=== PATIENT | female | born 1965 | race American Indian/Alaskan Native ===

== ENCOUNTER 2017-04-04 07:29 | Inpatient (IN) | payer MEDICARE ==
[2017-04-04 08:28] LABS: Basophils % (Auto) 0.4 % (0.0-1.8); Eosinophils % (Auto) 0.5 % (0.0-4.3); Hematocrit 35.1 % (30.3-42.9); Hemoglobin 12.5 gm/dl (10.1-14.3); Mean Corpuscular HGB Conc 36 % (30-34); Mean Corpuscular Hemoglobin 35 pg (28-32); Mean Corpuscular Volume 97 fl (79-97); Platelet Count 375 K/mm3 (140-440); Red Blood Count 3.61 M/mm3 (3.65-5.03); Red Cell Distribution Width 15.2 % (13.2-15.2); White Blood Count 11.2 K/mm3 (4.5-11.0)
[2017-04-04 08:39] LABS: INR 1.48 (0.87-1.13)
[2017-04-04 08:40] LABS: Anion Gap 17 mmol/L; BUN/Creatinine Ratio 16; Blood Urea Nitrogen 8 mg/dL (7-17); Carbon Dioxide 28 mmol/L (22-30); Glucose 108 mg/dL (65-100); Partial Thromboplastin Time 32.8 Sec. (24.2-36.6); Potassium 3.9 mmol/L (3.6-5.0); Sodium 140 mmol/L (137-145)
[2017-04-04] MEDS ORDERED: NACL 0.9% 500 ML 500 ML IV SCH (09:00)
[2017-04-04] MEDS ORDERED: HEPARIN/NS 5000 UNIT/500ML(CATH LAB) 1,000 ML IR ONE (09:38)
[2017-04-04] MEDS ORDERED: ANCEF/STERILE WATER 2 GM/20 ML 2 GM/20 ML SYRINGE IV ONE (09:39)
[2017-04-04] MEDS: VERSED ONE ×5 (10:15→11:02)
[2017-04-04] MEDS: XYLOCAINE 2% INFILTRATI ONE ×2 (10:15→10:27)
[2017-04-04] MEDS: SUBLIMAZE ONE ×6 (10:15→11:47)
[2017-04-04] MEDS ORDERED: HEPARIN/NS 5000 UNIT/500ML(CATH LAB) 500 ML IR ONE (10:32)
[2017-04-04] MEDS: HEPARIN 10,000 UNITS/10 ML ONE ×3 (10:37→11:42)
[2017-04-04] MEDS ORDERED: CATHFLO ONE ×2 (10:46→11:33)
[2017-04-04] MEDS ORDERED: NACL 0.9% 100 ML ONE (10:46)
[2017-04-04] MEDS ORDERED: WATER FOR INJ (PF) 10 ML ONE ×2 (10:46→11:32)
[2017-04-04] MEDS ORDERED: NACL 0.9% 50 ML ONE (10:52)
[2017-04-04] MEDS ORDERED: HEPARIN/ 0.45% NACL-25,000 UNIT/500 ML 25,000 UNIT/500 ML BAG SHEATH SCH (11:00)
[2017-04-04] MEDS ORDERED: NACL 0.9% 1000 ML 1,000 ML SHEATH SCH (11:00)
[2017-04-04] MEDS ORDERED: CATHFLO 20 MG in NACL 0.9% 500 ML 500 ML EKOSDLUMEN SCH (11:00)
[2017-04-04] MEDS ORDERED: NACL 0.9% 1000 ML 1,000 ML EKOSCLUMEN SCH (11:00)
[2017-04-04] MEDS ORDERED: MORPHINE IV PRN (13:04)
[2017-04-04] MEDS ORDERED: ZOFRAN IV PRN (13:04)
[2017-04-04] MEDS ORDERED: NORCO 5/325 ONE ×2 (14:16→19:54)
[2017-04-04] MEDS: NORCO 5/325 PO PRN ×2 (14:18→20:01)
--- NOTE | 2017-04-04 14:54 | Operative Report ---
Operative Report Operative Report: Procedure: 1. Ultrasound-guided puncture of the right popliteal vein 2. Right popliteal venography 3. Right superficial femoral venography 4. Right common iliac venography and inferior vena cavography 5. Pharmacologic thrombo-lysis with TPA pulse spray 6. Mechanical thrombo-lysis with AngioJet thrombectomy device 7. Insertion of an Ekos ultrasonic thrombo-lysis catheter. Date of Procedure: 04/04/2017 History/Indication: This is a 51-year-old female who had previously undergone bilateral common iliac vein stenting 10 days ago, she presented with symptoms of occlusion on the right. Physician: Antione Tejada MD Technique/Procedural Details: The patient was placed in the prone position on the procedure table. She was prepped and draped in the usual sterile fashion. A timeout was performed. Local anesthetic was administered. Under continuous ultrasound guidance, a 21- gauge needle was advanced into the right popliteal vein. This was exchanged for an 8 Belgian sheath via a micropuncture technique. Venography was performed through the sheath. Thereafter, a combination of a Ballard wire and a 4 Belgian vertebral catheter was used to maneuver into the IVC. Pullback venography was performed from multiple locations. 10 mg of TPA was diluted in 50 mL of saline. Via the [place] Angiojet catheter , the lesion was pulse sprayed. An 18 minute the well time was allowed. Repeat imaging was performed. Thereafter mechanical thrombectomy was performed throughout the lesion spanning the SFV to the IVC with the AngioJet device. Repeat venography was performed. Based on the images, the AngioJet was exchanged for an Ekos catheter with a 40 cm therapeutic length. The catheter was sat up and hooked up to the infusion pump in the usual standard fashion. The 8 Belgian catheter was secured to the skin, and dressings were placed to secure both the catheter and sheath. The patient tolerated the procedure well and was transported to the recovery area Discussion: Sonography demonstrates occlusion of the right superficial femoral and popliteal veins. Venography demonstrates near complete occlusion spanning the proximal right common iliac vein to the mid superficial femoral vein. After mechanical and pharmacologic thrombectomy/thrombolysis, only minimal luminal gain was achieved. This may be due to to a chronic underlying component of thrombus in addition to the acute thrombus. As such, the decision was made to place a microsonic infusion catheter overnight. The patient will be reevaluated tomorrow. Specimen: None EBL: 100 cc
[2017-04-04] MEDS ORDERED: Fluarix Quad 2017-2018(36 MOS+) IM ONE (15:46)
[2017-04-04 19:35] LABS: Basophils % (Auto) 0.4 % (0.0-1.8); Eosinophils % (Auto) 0.5 % (0.0-4.3); Hematocrit 34.3 % (30.3-42.9); Hemoglobin 11.6 gm/dl (10.1-14.3); Mean Corpuscular HGB Conc 34 % (30-34); Mean Corpuscular Hemoglobin 33 pg (28-32); Mean Corpuscular Volume 99 fl (79-97); Platelet Count 324 K/mm3 (140-440); Red Blood Count 3.48 M/mm3 (3.65-5.03); Red Cell Distribution Width 14.9 % (13.2-15.2); White Blood Count 12.4 K/mm3 (4.5-11.0)
[2017-04-04] MEDS: MORPHINE IV PRN (23:24)
[2017-04-05 01:33] LABS: Basophils % (Auto) 0.7 % (0.0-1.8); Eosinophils % (Auto) 1.2 % (0.0-4.3); Hematocrit 33.7 % (30.3-42.9); Hemoglobin 11.5 gm/dl (10.1-14.3); Mean Corpuscular HGB Conc 34 % (30-34); Mean Corpuscular Hemoglobin 34 pg (28-32); Mean Corpuscular Volume 98 fl (79-97); Platelet Count 323 K/mm3 (140-440); Red Blood Count 3.43 M/mm3 (3.65-5.03); Red Cell Distribution Width 14.9 % (13.2-15.2); White Blood Count 9.9 K/mm3 (4.5-11.0)
[2017-04-05] MEDS: NORCO 5/325 PO PRN ×2 (06:47→14:55)
[2017-04-05 07:02] LABS: Basophils % (Auto) 0.8 % (0.0-1.8); Hematocrit 33.4 % (30.3-42.9); Hemoglobin 11.8 gm/dl (10.1-14.3); Mean Corpuscular HGB Conc 35 % (30-34); Mean Corpuscular Hemoglobin 34 pg (28-32); Mean Corpuscular Volume 97 fl (79-97); Platelet Count 302 K/mm3 (140-440); Red Blood Count 3.43 M/mm3 (3.65-5.03); Red Cell Distribution Width 15.1 % (13.2-15.2); White Blood Count 9.2 K/mm3 (4.5-11.0)
[2017-04-05 07:27] LABS: Anion Gap 13 mmol/L; BUN/Creatinine Ratio 10; Blood Urea Nitrogen 6 mg/dL (7-17); Calcium 8.3 mg/dL (8.4-10.2); Carbon Dioxide 30 mmol/L (22-30); Chloride 100.2 mmol/L (98-107); Glucose 93 mg/dL (65-100); Potassium 3.9 mmol/L (3.6-5.0); Sodium 139 mmol/L (137-145)
[2017-04-05 07:28] LABS: Anion Gap 12 mmol/L; BUN/Creatinine Ratio 10; Blood Urea Nitrogen 6 mg/dL (7-17); Calcium 8.3 mg/dL (8.4-10.2); Carbon Dioxide 31 mmol/L (22-30); Chloride 101.6 mmol/L (98-107); Glucose 96 mg/dL (65-100); Potassium 3.9 mmol/L (3.6-5.0); Sodium 141 mmol/L (137-145)
[2017-04-05] MEDS ORDERED: HEPARIN 10,000 UNITS/10 ML ONE (08:13)
[2017-04-05] MEDS ORDERED: HEPARIN/NS 5000 UNIT/500ML(CATH LAB) 1,000 ML IR ONE (08:13)
[2017-04-05] MEDS: SUBLIMAZE ONE ×3 (08:48→09:30)
[2017-04-05] MEDS: VERSED IV ONE ×2 (08:48→09:27)
[2017-04-05] MEDS: XYLOCAINE 2% INFILTRATI ONE ×2 (08:49→08:51)
[2017-04-05] MEDS ORDERED: ANCEF/STERILE WATER 2 GM/20 ML 2 GM/20 ML SYRINGE IV ONE (08:57)
--- NOTE | 2017-04-05 10:29 | Consultation ---
History of Present Illness - Reason for Consult Consult date: 04/05/17 Post Op Care Requesting physician: GWEN COLINDRES - History of Present Illness 51 y/o female admitted post-op from [facility] for PVD Past History Past Medical History: PVD, other Medications and Allergies Allergies Allergy/AdvReac Type Severity Reaction Status Date / Time codeine Allergy Intermediate Vomiting Verified 04/04/17 07:56 naproxen [From Naprosyn] Allergy Intermediate Vomiting Verified 04/04/17 07:56 Home Medications Medication Instructions Recorded Confirmed Last Taken Type Clopidogrel [Plavix] 75 mg PO QHS 05/11/15 04/04/17 04/03/17 History Apixaban [Eliquis] 5 mg PO DAILY 04/04/17 04/04/17 04/03/17 History Aspirin EC [Aspirin Enteric Coated 325 mg PO DAILY 04/04/17 04/04/17 04/03/17 History TAB] Active Meds: Active Medications Acetaminophen/Hydrocodone Bitart ([place] 5/325) 2 each PO Q6H PRN PRN Reason: Pain, Moderate (4-6) Last Admin: 04/05/17 06:47 Dose: 2 each Sodium Chloride (Nacl 0.9% 500 Ml) 500 mls @ 50 mls/hr IV DIRECT ALY Last Admin: 04/04/17 08:55 Dose: 50 mls/hr Alteplase, Recombinant 20 mg/ (Sodium Chloride) 500 mls @ 25 mls/hr EKOSDLUMEN DIRECT ALY Last Admin: 04/04/17 12:40 Dose: 25 mls/hr Heparin Sodium/Sodium Chloride (Heparin/ 0.45% Nacl-25,000 Unit/500 Ml) 25,000 unit in 500 mls @ 10 mls/hr SHEATH DIRECT ALY; 500 UNITS/HR PRN Reason: Protocol Last Admin: 04/04/17 12:40 Dose: 500 units/hr, 10 mls/hr Sodium Chloride (Nacl 0.9% 1000 Ml) 1,000 mls @ 30 mls/hr SHEATH DIRECT ALY Sodium Chloride (Nacl 0.9% 1000 Ml) 1,000 mls @ 35 mls/hr EKOSCLUMEN DIRECT ALY Last Admin: 04/04/17 12:40 Dose: 35 mls/hr Influenza Virus Vaccine Quadrival (Fluarix Quad [id number](36 Mos+)) 0.5 ml IM .ONCE ONE Stop: 04/05/17 12:01 Morphine Sulfate (Morphine) 2 mg IV Q4H PRN PRN Reason: Pain, Moderate (4-6) Last Admin: 04/04/17 23:24 Dose: 2 mg Morphine Sulfate (Morphine) 4 mg IV Q4H PRN PRN Reason: Pain , Severe (7-10) Ondansetron HCl (Zofran) 4 mg IV Q8H PRN PRN Reason: Nausea And Vomiting Last Admin: 04/04/17 23:24 Dose: 4 mg Review of Systems All systems: negative Exam - Constitutional Vitals: Temp Pulse Resp BP Pulse Ox 98.2 F 65 12 125/90 97 04/05/17 08:00 04/05/17 07:40 04/05/17 07:40 04/05/17 07:40 04/05/17 07:40 Results - Labs CBC & Chem 7: 04/05/17 06:45 04/06/17 05:44 Labs: Abnormal lab results 04/04/17 04/04/17 04/05/17 Range/Units 19:20 19:20 01:15 WBC 12.4 H (4.5-11.0) K/mm3 RBC 3.48 L 3.43 L (3.65-5.03) M/mm3 MCV 99 H 98 H (79-97) fl MCH 33 H 34 H (28-32) pg MCHC (30-34) % [place] % (Auto) 9.7 H 10.1 H (0.0-7.3) % [place] # 1.2 H 1.0 H (0.0-0.8) K/mm3 Seg Neutrophils % 70.8 H (40.0-70.0) % Seg Neutrophils # 8.8 H (1.8-7.7) K/mm3 Fibrinogen 516 H (211-480) mg/dl Heparin Anti-Xa Level 0.73 H (0.3-0.7) U.I./ml Carbon Dioxide (22-30) mmol/L BUN (7-17) mg/dL Creatinine (0.7-1.2) mg/dL Calcium (8.4-10.2) mg/dL 04/05/17 04/05/17 04/05/17 Range/Units 06:45 06:45 06:45 WBC (4.5-11.0) K/mm3 RBC 3.43 L (3.65-5.03) M/mm3 MCV (79-97) fl MCH 34 H (28-32) pg MCHC 35 H (30-34) % [place] % (Auto) 12.7 H (0.0-7.3) % [place] # 1.2 H (0.0-0.8) K/mm3 Seg Neutrophils % (40.0-70.0) % Seg Neutrophils # (1.8-7.7) K/mm3 Fibrinogen (211-480) mg/dl Heparin Anti-Xa Level 0.25 L (0.3-0.7) U.I./ml Carbon Dioxide (22-30) mmol/L BUN 6 L (7-17) mg/dL Creatinine 0.6 L (0.7-1.2) mg/dL Calcium 8.3 L (8.4-10.2) mg/dL 04/05/17 Range/Units 06:45 WBC (4.5-11.0) K/mm3 RBC (3.65-5.03) M/mm3 MCV (79-97) fl MCH (28-32) pg MCHC (30-34) % [place] % (Auto) (0.0-7.3) % [place] # (0.0-0.8) K/mm3 Seg Neutrophils % (40.0-70.0) % Seg Neutrophils # (1.8-7.7) K/mm3 Fibrinogen (211-480) mg/dl Heparin Anti-Xa Level (0.3-0.7) U.I./ml Carbon Dioxide 31 H (22-30) mmol/L BUN 6 L (7-17) mg/dL Creatinine 0.6 L (0.7-1.2) mg/dL Calcium 8.3 L (8.4-10.2) mg/dL Assessment and Plan 51 y/o female with PVD, needing EKOS therapy for blood flow 1. EKOS catheters to be removed today 2. Bed rest post removal 3. Hopeful transfer to floor post bed rest time
--- NOTE | 2017-04-05 10:43 | Operative Report ---
Operative Report Operative Report: Procedure: 1. Removal of Ekos TPA infusion catheter from the right lower extremity. 2. Venography of the right common iliac, external iliac, common femoral, and superficial femoral veins 3. Mechanical thrombectomy of the right common iliac, external iliac, common femoral, and superficial veins with a Trerotola device. 4. Suction thrombectomy of the aforementioned veins 5. Balloon angioplasty of the right superficial femoral vein 6. Balloon angioplasty of the right external iliac vein 7. Balloon angioplasty of the right common iliac vein 8. Balloon angioplasty of the right common femoral vein 2 9. Repeat mechanical thrombectomy of the right common femoral vein 10.. Balloon angioplasty of the distal inferior vena cava Date of Procedure: 04/05/2017 History/Indication: 51-year-old female with bilateral common iliac vein stents. She developed thrombosis of the right sided stent several days ago. Yesterday, she had a TPA infusion catheter placed. She returns today for follow-up evaluation and possible treatment. Physician: Antione Tejada MD Technique/Procedural Details: The patient was placed in the prone position and prepped and draped in the usual sterile fashion. A timeout was performed. Images were acquired to document positioning of the TPA infusion catheter. Thereafter, a Ballard wire and 4 [place] vertebral catheter were used to access the IVC through the prexisting sheath. Sequential venography from the central common iliac vein down to the mid superficial femoral vein was performed. Then, mechanical thrombectomy with a Trerotola device was performed from the superficial femoral vein to the mid common iliac vein. An 8 [place] MPA guide catheter was advanced to the IVC, and pullback suction thrombectomy was performed from this level to the superficial femoral vein. After repeat venography, the common and superficial femoral veins were treated with a 10 mm x 4 cm balloon. The external iliac and common iliac veins were treated with a 12 mm x 6 cm balloon. After repeat venography, repeat mechanical thrombectomy and suction thrombectomy of the right common femoral vein was performed. A 10 mm conquest balloon was used to repeat venooplasty of the right common femoral vein. The balloon was removed, and repeat imaging was performed. The 12 mm balloon was advanced to the central aspect of the common iliac vein. The Ballard wire was replaced with a superstiff Amplatz wire. The 12 mm balloon was then partially advanced to the IVC. Venoplasty of the distal IVC and central right common iliac vein was then performed. Venography of the IVC bifurcation was then performed in multiple projections. Repeat venography of the superficial femoral vein was performed. All catheters and wires were removed from the patient. Hemostasis was achieved with manual pressure. The patient was then transported to the recovery area without immediate complication. Discussion: In comparison to imaging from yesterday, there was significantly improved patency spanning the superficial femoral vein to the common iliac vein after placement of the Ekos catheter. Residual areas of thrombus were treated with mechanical and suction thrombectomy. Any further stenoses were treated with balloon angioplasty. After intervention, there was complete patency of the superficial femoral and external iliac veins. There were residual, mild chronic changes in the right common femoral vein. Irregular appearing flow into the IVC from the right common iliac vein may be due to a combination of mild chronic changes and inflow of an opacified blood. Specimen: None EBL: <5 cc
[2017-04-05] MEDS ORDERED: Fluarix Quad 2017-2018(36 MOS+) IM ONE (12:00)
--- NOTE | 2017-04-05 12:55 | Progress Note ---
Assessment and Plan She feels much better after part two of her thrombectomy/thrombolysis procedure. I will have hematology see her in case there is an issue with hypercoagulability. In the meantime, she will start on Eliquis 10 BID tonight. Her baird can be d/c'ed after her bedrest is over. I will transfer her to the floors. Subjective Date of service: 04/05/17 Interval history: I checked on the patient several hours after her procedure. She reports that her right leg feels much better. She will be on bedrest until 1:00 PM Objective - Constitutional Vitals: Vital Signs - 12hr 04/05/17 04/05/17 04/05/17 01:00 01:10 01:20 Temperature Pulse Rate 56 L 57 L 62 Respiratory 12 14 Rate Blood Pressure 126/62 126/62 126/62 O2 Sat by Pulse 98 99 99 Oximetry 04/05/17 04/05/17 04/05/17 01:30 01:40 01:50 Temperature Pulse Rate 59 L 59 L 57 L Respiratory 20 17 20 Rate Blood Pressure 126/62 126/62 126/62 O2 Sat by Pulse 97 96 96 Oximetry 04/05/17 04/05/17 04/05/17 02:00 02:10 02:20 Temperature Pulse Rate 59 L 58 L 57 L Respiratory 18 19 19 Rate Blood Pressure 116/65 116/65 116/65 O2 Sat by Pulse 94 97 96 Oximetry 04/05/17 04/05/17 04/05/17 02:30 02:40 02:50 Temperature Pulse Rate 60 55 L 60 Respiratory 20 17 13 Rate Blood Pressure 116/65 116/65 116/65 O2 Sat by Pulse 99 99 100 Oximetry 04/05/17 04/05/17 04/05/17 03:00 03:10 03:11 Temperature 98.5 F Pulse Rate 60 62 Respiratory 16 20 Rate Blood Pressure 126/70 126/70 O2 Sat by Pulse 96 96 Oximetry 04/05/17 04/05/17 04/05/17 03:20 03:30 03:40 Temperature Pulse Rate 55 L 61 61 Respiratory 18 23 21 Rate Blood Pressure 126/70 126/70 126/70 O2 Sat by Pulse 98 95 95 Oximetry 04/05/17 04/05/17 04/05/17 03:50 04:00 04:10 Temperature Pulse Rate 62 57 L 73 Respiratory 22 15 14 Rate Blood Pressure 126/70 103/65 103/65 O2 Sat by Pulse 95 95 88 Oximetry 04/05/17 04/05/17 04/05/17 04:20 04:30 04:40 Temperature Pulse Rate 59 L 57 L 56 L Respiratory 18 16 18 Rate Blood Pressure 103/65 103/65 103/65 O2 Sat by Pulse 95 98 98 Oximetry 04/05/17 04/05/17 04/05/17 04:50 05:00 05:10 Temperature Pulse Rate 55 L 53 L 58 L Respiratory 19 17 19 Rate Blood Pressure 103/65 122/66 122/66 O2 Sat by Pulse 97 96 97 Oximetry 04/05/17 04/05/17 04/05/17 05:20 05:30 05:40 Temperature Pulse Rate 59 L 61 63 Respiratory 19 21 11 L Rate Blood Pressure 103/65 103/65 103/65 O2 Sat by Pulse 95 96 100 Oximetry 04/05/17 04/05/17 04/05/17 05:50 06:00 06:10 Temperature Pulse Rate 59 L 60 60 Respiratory 12 12 10 L Rate Blood Pressure 103/65 125/69 125/69 O2 Sat by Pulse 98 97 99 Oximetry 04/05/17 04/05/17 04/05/17 06:20 06:30 06:40 Temperature Pulse Rate 60 55 L 58 L Respiratory 12 14 11 L Rate Blood Pressure 125/69 125/69 125/69 O2 Sat by Pulse 96 98 100 Oximetry 04/05/17 04/05/17 04/05/17 06:50 07:00 07:10 Temperature Pulse Rate 65 58 L 63 Respiratory 13 12 15 Rate Blood Pressure 125/69 125/90 125/90 O2 Sat by Pulse 100 92 100 Oximetry 04/05/17 04/05/17 04/05/17 07:20 07:30 07:40 Temperature Pulse Rate 60 53 L 65 Respiratory 8 L 12 12 Rate Blood Pressure 125/90 125/90 125/90 O2 Sat by Pulse 100 100 97 Oximetry 04/05/17 04/05/17 04/05/17 08:00 10:29 10:30 Temperature 98.2 F Pulse Rate Respiratory Rate Blood Pressure O2 Sat by Pulse 99 99 Oximetry 04/05/17 04/05/17 04/05/17 10:40 10:50 11:00 Temperature Pulse Rate 49 L 58 L 52 L Respiratory 11 L 11 L 12 Rate Blood Pressure 127/74 125/90 142/50 O2 Sat by Pulse 97 98 98 Oximetry 04/05/17 04/05/17 04/05/17 11:10 11:20 11:30 Temperature Pulse Rate 57 L 59 L 59 L Respiratory 11 L 9 L 12 Rate Blood Pressure 142/50 142/50 136/89 O2 Sat by Pulse 98 100 99 Oximetry 04/05/17 04/05/17 04/05/17 11:40 11:50 12:00 Temperature Pulse Rate 57 L 54 L 63 Respiratory 13 12 9 L Rate Blood Pressure 136/89 136/89 139/86 O2 Sat by Pulse 69 L 100 99 Oximetry 04/05/17 04/05/17 12:10 12:20 Temperature Pulse Rate 60 65 Respiratory 13 13 Rate Blood Pressure 139/86 139/86 O2 Sat by Pulse 100 95 Oximetry General appearance: Present: no acute distress - EENT Eyes: EOM intact ENT: hearing intact - Neck Neck: supple, normal ROM Extremities: no ischemia Extremity abnormal: edema - Labs CBC & Chem 7: 04/05/17 06:45 04/05/17 06:45 Labs: Abnormal lab results 04/04/17 04/04/17 04/05/17 Range/Units 19:20 19:20 01:15 WBC 12.4 H (4.5-11.0) K/mm3 RBC 3.48 L 3.43 L (3.65-5.03) M/mm3 MCV 99 H 98 H (79-97) fl MCH 33 H 34 H (28-32) pg MCHC (30-34) % [place] % (Auto) 9.7 H 10.1 H (0.0-7.3) % [place] # 1.2 H 1.0 H (0.0-0.8) K/mm3 Seg Neutrophils % 70.8 H (40.0-70.0) % Seg Neutrophils # 8.8 H (1.8-7.7) K/mm3 Fibrinogen 516 H (211-480) mg/dl Heparin Anti-Xa Level 0.73 H (0.3-0.7) U.I./ml Carbon Dioxide (22-30) mmol/L BUN (7-17) mg/dL Creatinine (0.7-1.2) mg/dL Calcium (8.4-10.2) mg/dL 04/05/17 04/05/17 04/05/17 Range/Units 06:45 06:45 06:45 WBC (4.5-11.0) K/mm3 RBC 3.43 L (3.65-5.03) M/mm3 MCV (79-97) fl MCH 34 H (28-32) pg MCHC 35 H (30-34) % [place] % (Auto) 12.7 H (0.0-7.3) % [place] # 1.2 H (0.0-0.8) K/mm3 Seg Neutrophils % (40.0-70.0) % Seg Neutrophils # (1.8-7.7) K/mm3 Fibrinogen (211-480) mg/dl Heparin Anti-Xa Level 0.25 L (0.3-0.7) U.I./ml Carbon Dioxide (22-30) mmol/L BUN 6 L (7-17) mg/dL Creatinine 0.6 L (0.7-1.2) mg/dL Calcium 8.3 L (8.4-10.2) mg/dL 04/05/17 Range/Units 06:45 WBC (4.5-11.0) K/mm3 RBC (3.65-5.03) M/mm3 MCV (79-97) fl MCH (28-32) pg MCHC (30-34) % [place] % (Auto) (0.0-7.3) % [place] # (0.0-0.8) K/mm3 Seg Neutrophils % (40.0-70.0) % Seg Neutrophils # (1.8-7.7) K/mm3 Fibrinogen (211-480) mg/dl Heparin Anti-Xa Level (0.3-0.7) U.I./ml Carbon Dioxide 31 H (22-30) mmol/L BUN 6 L (7-17) mg/dL Creatinine 0.6 L (0.7-1.2) mg/dL Calcium 8.3 L (8.4-10.2) mg/dL
[2017-04-05] MEDS: ELIQUIS PO SCH (21:49)
[2017-04-05] MEDS: MORPHINE IV PRN (21:57)
[2017-04-06] MEDS: MORPHINE IV PRN (06:04)
[2017-04-06 06:51] LABS: Anion Gap 17 mmol/L; BUN/Creatinine Ratio 7; Blood Urea Nitrogen 4 mg/dL (7-17); Calcium 8.4 mg/dL (8.4-10.2); Carbon Dioxide 28 mmol/L (22-30); Chloride 98.9 mmol/L (98-107); Glucose 101 mg/dL (65-100); Potassium 3.5 mmol/L (3.6-5.0); Sodium 140 mmol/L (137-145)
[2017-04-06] MEDS: NORCO 5/325 PO PRN ×2 (08:29→14:27)
[2017-04-06] MEDS: ELIQUIS PO SCH ×2 (10:06→23:16)
--- NOTE | 2017-04-06 11:27 | Progress Note ---
Assessment and Plan 51 y/o female with PVD, needing EKOS therapy for blood flow 1. Will sign off, call if questions or help is needed. Subjective Date of service: 04/06/17 Interval history: Successful transfer out of ICU. Stable, no issues. Objective - Constitutional Vitals: Vital Signs - 12hr 04/06/17 04/06/17 04/06/17 02:00 06:04 08:29 Temperature Pulse Rate Respiratory 20 18 Rate Respiratory 20 Rate [Right Thigh] Blood Pressure O2 Sat by Pulse Oximetry 04/06/17 04/06/17 04/06/17 08:40 09:29 10:22 Temperature 98.1 F Pulse Rate 68 Respiratory 20 16 16 Rate Respiratory Rate [Right Thigh] Blood Pressure 143/85 O2 Sat by Pulse 98 Oximetry - Labs CBC & Chem 7: 04/05/17 06:45 04/06/17 05:44 Labs: Abnormal lab results 04/06/17 Range/Units 05:44 Potassium 3.5 L (3.6-5.0) mmol/L BUN 4 L (7-17) mg/dL Creatinine 0.6 L (0.7-1.2) mg/dL Glucose 101 H (65-100) mg/dL
--- NOTE | 2017-04-06 11:35 | Progress Note ---
Assessment and Plan From a vascular perspective, she has done well. She restarted Eliquis yesterday evening. She will be seen by hematology today. Allowing for any recommendations by hematology, she will be tentatively discharged this afternoon. Subjective Date of service: 04/06/17 Interval history: The patient is status post right lower extremity venous thrombectomy/ spondylolysis. She was transferred to the floors yesterday. There have been no acute events overnight. She states the pain in her right leg is significantly decreased, although she does complain of some mild cramping. She has been able to ambulate without difficulty. Objective - Constitutional Vitals: Vital Signs - 12hr 04/06/17 04/06/17 04/06/17 02:00 06:04 08:29 Temperature Pulse Rate Respiratory 20 18 Rate Respiratory 20 Rate [Right Thigh] Blood Pressure O2 Sat by Pulse Oximetry 04/06/17 04/06/17 04/06/17 08:40 09:29 10:22 Temperature 98.1 F Pulse Rate 68 Respiratory 20 16 16 Rate Respiratory Rate [Right Thigh] Blood Pressure 143/85 O2 Sat by Pulse 98 Oximetry General appearance: Present: no acute distress - EENT Eyes: EOM intact ENT: hearing intact - Neck Neck: supple Extremities: No edema, normal temperature, normal color - Labs CBC & Chem 7: 04/05/17 06:45 04/06/17 05:44 Labs: Abnormal lab results 04/06/17 Range/Units 05:44 Potassium 3.5 L (3.6-5.0) mmol/L BUN 4 L (7-17) mg/dL Creatinine 0.6 L (0.7-1.2) mg/dL Glucose 101 H (65-100) mg/dL
--- NOTE | 2017-04-06 12:03 | Hem/Onc Consultation ---
History of Present Illness - Reason for Consult Consult date: 04/06/17 - History of Present Illness dictated Past History Past Medical History: PVD, other Medications and Allergies Allergies Allergy/AdvReac Type Severity Reaction Status Date / Time codeine Allergy Intermediate Vomiting Verified 04/04/17 07:56 naproxen [From Naprosyn] Allergy Intermediate Vomiting Verified 04/04/17 07:56 Home Medications Medication Instructions Recorded Confirmed Last Taken Type Clopidogrel [Plavix] 75 mg PO QHS 05/11/15 04/04/17 04/03/17 History Apixaban [Eliquis] 5 mg PO DAILY 04/04/17 04/04/17 04/03/17 History Aspirin EC [Aspirin Enteric Coated 325 mg PO DAILY 04/04/17 04/04/17 04/03/17 History TAB] Active Meds: Active Medications Acetaminophen/Hydrocodone Bitart ([place] 5/325) 2 each PO Q6H PRN PRN Reason: Pain, Moderate (4-6) Last Admin: 04/06/17 08:29 Dose: 2 each Apixaban (Eliquis) 10 mg PO Q12HR ALY PRN Reason: Protocol Last Admin: 04/06/17 10:06 Dose: 10 mg Morphine Sulfate (Morphine) 2 mg IV Q4H PRN PRN Reason: Pain, Moderate (4-6) Last Admin: 04/06/17 06:04 Dose: 2 mg Morphine Sulfate (Morphine) 4 mg IV Q4H PRN PRN Reason: Pain , Severe (7-10) Ondansetron HCl (Zofran) 4 mg IV Q8H PRN PRN Reason: Nausea And Vomiting Last Admin: 04/04/17 23:24 Dose: 4 mg Exam - Constitutional Vitals: Last Vital Signs Temp 98.1 F 04/06/17 08:40 Pulse 68 04/06/17 08:40 Resp 16 04/06/17 10:22 BP 143/85 04/06/17 08:40 Pulse Ox 98 04/06/17 08:40 Results - Labs lab Results: Laboratory Results - last 24 hr 04/06/17 05:44 Sodium 140 Potassium 3.5 L Chloride 98.9 Carbon Dioxide 28 Anion Gap 17 BUN 4 L Creatinine 0.6 L Estimated GFR > 60 BUN/Creatinine Ratio 7 Glucose 101 H Calcium 8.4 Assessment and Plan hypercoag w/u hit panel agree with eliquis will follow may need abd ct- pt had abd surgery
--- NOTE | 2017-04-06 14:11 | Discharge Summary ---
Providers - Providers Date of Admission: 04/04/17 13:07 Date of discharge: 04/06/17 Attending physician: GWEN COLINDRES MD 04/05/17 11:42 Consult to Physician [CONS] Routine Consulting Provider: ABDIAZIZ WHITAKER Reason For Exam: hypercoagulability Place consult to:: Annelise Notified:: yes Was contact made?: Yes If yes, spoke with:: Annelise Time called:: 11:43 Comment:: Dr. Colindres spoke with Dr. Whitaker at 11:43 as noted above Primary care physician: TESSA NIXON Hospitalization Reason for admission: DVT Condition: Good Procedures: Procedure: 1. Ultrasound-guided puncture of the right popliteal vein 2. Right popliteal venography 3. Right superficial femoral venography 4. Right common iliac venography and inferior vena cavography 5. Pharmacologic thrombo-lysis with TPA pulse spray 6. Mechanical thrombo-lysis with AngioJet thrombectomy device 7. Insertion of an Ekos ultrasonic thrombo-lysis catheter. Date of Procedure: 04/04/2017 Procedure: 1. Removal of Ekos TPA infusion catheter from the right lower extremity. 2. Venography of the right common iliac, external iliac, common femoral, and superficial femoral veins 3. Mechanical thrombectomy of the right common iliac, external iliac, common femoral, and superficial veins with a Trerotola device. 4. Suction thrombectomy of the aforementioned veins 5. Balloon angioplasty of the right superficial femoral vein 6. Balloon angioplasty of the right external iliac vein 7. Balloon angioplasty of the right common iliac vein 8. Balloon angioplasty of the right common femoral vein 2 9. Repeat mechanical thrombectomy of the right common femoral vein 10.. Balloon angioplasty of the distal inferior vena cava Date of Procedure: 04/05/2017 Hospital course: The was sent over from the office due to concern over thrombosis of a right lower extremity venous stent. On the day of admission she underwent pharmacologic and mechanical thrombectomy with Ekos catheter placement. The next day, the Ekos was removed, and further mechanical thrombectomy was performed. She felt much better afterwards and was seen by hematology thereafter. Disposition: TO HOME OR SELFCARE Core Measure Documentation - Palliative Care Palliative Care/ Comfort Measures: Not Applicable - Core Measures Any of the following diagnoses?: DVT/PE - VTE Discharge Requirements Deep Vein Thrombosis/Pulmonary Embolism Present on Admission: Yes Has pt received <5 days of overlap therapy or INR<2.0: No (Patient bridged from heparin to eliquis) Anticoagulant overlap therapy prescribed at discharge: No Contraindication No Overlap Therapy order at DC: Not Indicated (on eliquis) Exam - Constitutional Vitals: Temp Pulse Resp BP Pulse Ox 98.1 F 68 16 143/85 98 04/06/17 08:40 04/06/17 08:40 04/06/17 10:22 04/06/17 08:40 04/06/17 08:40 General appearance: Present: no acute distress - EENT Eyes: Present: PERRL ENT: hearing intact - Neck Neck: Present: supple - Respiratory Respiratory effort: normal - Extremities Extremities: no ischemia Plan Activity: advance as tolerated Weight Bearing Status: Weight Bear as Tolerated Diet: low cholesterol Wound: open to air, keep clean and dry Follow up with: TESSA NIXON MD [Primary Care Provider] - 7 Days ABDIAZIZ WHITAKER MD [Staff Physician] - 7 Days GWEN COLINDRES MD [Staff Physician] - 14 Days Prescriptions: Apixaban [Eliquis] 5 mg PO Q12HR #60 tablet
[2017-04-07] MEDS: NORCO 5/325 PO PRN ×2 (00:24→09:10)
[2017-04-07 08:26] VITALS: BP 143/95
[2017-04-07] MEDS: ELIQUIS PO SCH (09:10)
[2017-04-07 11:16] LABS: Anion Gap 20 mmol/L; BUN/Creatinine Ratio 7; Blood Urea Nitrogen 4 mg/dL (7-17); Calcium 8.6 mg/dL (8.4-10.2); Carbon Dioxide 27 mmol/L (22-30); Chloride 100.5 mmol/L (98-107); Glucose 96 mg/dL (65-100); Potassium 3.7 mmol/L (3.6-5.0); Sodium 144 mmol/L (137-145)
--- NOTE | 2017-04-07 12:12 | Consultation ---
REFERRING PHYSICIAN: ____. REASON FOR CONSULTATION: Hypercoagulable state. HISTORY OF PRESENT ILLNESS: The patient is a 51-year-old female, who had undergone bilateral common iliac vein stenting few days ago, presented with occlusion on the right side. She was found to have extensive thrombosis of the right iliac, right femoral ____ foot all the way to the thigh and from the ____ of the right popliteal vein and ____ thrombolysis with Angiojet thrombectomy ____ thrombolysis catheter on the . Because of the fact that she had an extensive thrombosis, after the procedure, Hematology consult was called. The patient has had Kwon's disease in 2009, requiring right-sided toes amputation. She has had multiple vascular procedures done over the past. She denies any family history of thrombosis. She used to smoke cigars, but quit several years ago. Does not take any hormone supplements. The patient ____ in September of this year at [facility]. She did have ____. PAST MEDICAL HISTORY: As mentioned in the history of present illness. SOCIAL HISTORY: She does not smoke or drink. PHYSICAL EXAMINATION: GENERAL: The patient is awake and oriented. HEENT: Unremarkable. CHEST: Clear. CARDIOVASCULAR: Regular rate and rhythm. ABDOMEN: Soft and nontender. EXTREMITIES: Right leg shows ____ normal temperature. In the right leg, there is absence of toes. Left leg is within normal limits. LABORATORY DATA: ____. ASSESSMENT: Extensive venous thrombosis on the right leg in this patient with recent ____ stents placement. PLAN: At this time, we will do hypercoagulable workup here. We will also add heparin-induced thrombocytopenia assay. We will follow up on the results. May need CT of the abdomen to rule out any intraabdominal pathology, especially since she had recent abdominal surgery. The patient is on Eliquis, and I agree with that. We will monitor. JOB# [id number] PAOLA/KEVAN
[2017-04-08 05:09] LABS: PTT-LA 41 sec (<=40)
[2017-04-09 11:01] LABS: Protein S, Free 125 % normal (50-147); Protein S, Total 152 % (70-140)
[2017-04-10 09:29] LABS: Heparin-Induced Platelet Antib Negative (Negative); Unfractionated Heparin Negative (Negative)
== END 2017-04-07 15:11 | disposition home or self-care (01) | DRG 908 ==
LOC: CATHLABREC 07:29 → CC1 13:07 → 3A 04-05 15:30
PROVIDERS: ADMIT Radiology Diagnostic Radiology; ATTEND Radiology Diagnostic Radiology
PROC: 3E04317 Introduction of Other Thrombolytic into Central Vein, Percutaneous Approach (ICD-10-PCS; 2017-04-04)
PROC: B51B1ZZ Fluoroscopy of Right Lower Extremity Veins using Low Osmolar Contrast (ICD-10-PCS; 2017-04-04)
PROC: B51F1ZZ Fluoroscopy of Right Pelvic (Iliac) Veins using Low Osmolar Contrast (ICD-10-PCS; 2017-04-04)
PROC: 06CC3ZZ Extirpation of Matter from Right Common Iliac Vein, Percutaneous Approach (ICD-10-PCS; principal; 2017-04-05)
PROC: 06CF3ZZ Extirpation of Matter from Right External Iliac Vein, Percutaneous Approach (ICD-10-PCS; 2017-04-05)
PROC: 06CM3ZZ Extirpation of Matter from Right Femoral Vein, Percutaneous Approach (ICD-10-PCS; 2017-04-05)
PROC: 067M3ZZ Dilation of Right Femoral Vein, Percutaneous Approach (ICD-10-PCS; 2017-04-05)
PROC: 067F3ZZ Dilation of Right External Iliac Vein, Percutaneous Approach (ICD-10-PCS; 2017-04-05)
PROC: 067C3ZZ Dilation of Right Common Iliac Vein, Percutaneous Approach (ICD-10-PCS; 2017-04-05)
DX: T85.868A Thrombosis due to other internal prosthetic devices, implants and grafts, initial encounter (principal); D68.59 Other primary thrombophilia; Y83.8 Other surgical procedures as the cause of abnormal reaction of the patient, or of later complication, without mention of misadventure at the time of the procedure; I73.9 Peripheral vascular disease, unspecified; Y92.89 Other specified places as the place of occurrence of the external cause; Z88.5 Allergy status to narcotic agent; Z88.8 Allergy status to other drugs, medicaments and biological substances; Z79.82 Long term (current) use of aspirin
CPT/HCPCS: 36415; 37187; 37212; 37214; 37248; 37249; 51702; 75820; 80048; 83516; 85025; 85210; 85220; 85301; 85305; 85384; 85520; 85610; 85613; 85730; 86022; 90686; 96365; 96366; 96368; C1725; C1757; C1769; C1887; C1894; J0690; J1644; J2250; J2270; J2405; J2997; J3010; J7030; J7040; Q9967

== ENCOUNTER 2017-12-25 08:25 | Inpatient (IN) | payer MEDICARE ==
[2017-12-25] MEDS ORDERED: ASPIRIN PO ONE (08:44)
--- NOTE | 2017-12-25 09:06 | XRay Report ---
Chest 2 views: Compared to 04/15/16. History: Chest pain. Shortness of breath. Findings: Borderline cardiomegaly. Trachea is midline. Scarring left lower lobe. No consolidation or pleural effusion. Impression: No acute cardiopulmonary findings.
[2017-12-25 10:10] LABS: Basophils # (Auto) 0.1 K/mm3 (0.0-0.1); Eosinophils # (Auto) 0.2 K/mm3 (0.0-0.4); Hematocrit 43.5 % (30.3-42.9); Hemoglobin 14.6 gm/dl (10.1-14.3); Lymphocytes % (Auto) 31.5 % (13.4-35.0); Mean Corpuscular HGB Conc 33 % (30-34); Mean Corpuscular Hemoglobin 33 pg (28-32); Mean Corpuscular Volume 100 fl (79-97); Monocytes # (Auto) 0.8 K/mm3 (0.0-0.8); Monocytes % (Auto) 8.3 % (0.0-7.3); Platelet Count 288 K/mm3 (140-440); Red Blood Count 4.36 M/mm3 (3.65-5.03); Red Cell Distribution Width 16.8 % (13.2-15.2)
[2017-12-25 10:20] LABS: BUN/Creatinine Ratio 20; Blood Urea Nitrogen 12 mg/dL (7-17); Calcium 9.1 mg/dL (8.4-10.2); Hemolysis Index 27
[2017-12-25] MEDS ORDERED: NITROSTAT SL PRN (11:31)
[2017-12-25] MEDS ORDERED: SUBLIMAZE IV ONE (11:32)
--- NOTE | 2017-12-25 11:34 | Emergency Department Report ---
ED Chest Pain HPI - General Chief Complaint: Chest Pain Stated Complaint: CHEST PAIN/CATE Time Seen by Provider: 12/25/17 11:15 Source: patient, RN notes reviewed, old records reviewed Mode of arrival: Ambulatory Limitations: No Limitations - History of Present Illness Initial Comments: This is a 52-year-old female who is known to this provider previously. Has a past medical history of DVT, IVC stents, iliac vein stent, on chronic anticoagulation; pradaxa Patient presents to the ER with a complaint of central and left-sided chest pain. The pains are sharp. It increases with palpation. It decreases with rest. It does not radiate anywhere. She denies vomiting, diaphoresis, shortness of breath. Denies recent cocaine use. No recent aspirin use. No recent cardiac risk stratification within the past months. No lower abdominal pain. Reports compliance with outpatient anticoagulation. MD Complaint: chest pain -: Gradual Onset: during rest Pain Location: substernal, left chest, right chest Pain Radiation: none Severity: mild Severity scale (0 -10): 10 Quality: tightness, aching Consistency: constant Improves With: rest Worsens With: palpation Aspirin use within the Past 7 Days: (0) No - Related Data On Oral Contraceptives: No Home Medications Medication Instructions Recorded Confirmed Last Taken Dabigatran [Pradaxa] 150 mg PO BID 12/25/17 12/25/17 12/25/17 Ergocalciferol [Vitamin D2] 1 cap PO QWEEK 12/25/17 12/25/17 Unknown Folic Acid [Folvite] 1 mg PO QDAY 12/25/17 12/25/17 12/25/17 Allergies Allergy/AdvReac Type Severity Reaction Status Date / Time codeine Allergy Intermediate Vomiting Verified 04/04/17 07:56 naproxen [From Naprosyn] Allergy Intermediate Vomiting Verified 04/04/17 07:56 Heart Score - HEART Score History: Slightly suspicious EKG: Non-specific Age: 45-65 Risk factors: 1-2 risk factors Troponin: < normal limit HEART Score: 3 - Critical Actions Critical Actions: 0-3 pts:0.9-1.7%risk of adverse cardiac event.Candidate for discharge ED Review of Systems ROS: Stated complaint: CHEST PAIN/CATE Other details as noted in HPI Comment: All other systems reviewed and negative Respiratory: denies: cough Cardiovascular: chest pain ED Past Medical Hx - Past Medical History Hx Hypertension: Yes (1979, stop taking meds 08/2016) Hx Heart Attack/AMI: No Hx Congestive Heart Failure: No Hx Diabetes: No Hx Deep Vein Thrombosis: Yes Hx Sickle Cell Disease: No Hx Arthritis: Yes Hx Headaches / Migraines: Yes (migraines) Hx Seizures: No Hx Asthma: No Hx COPD: Yes (early, asymptomatic) Hx HIV: No - Surgical History Hx Pacemaker: No Hx Internal Defibrillator: No Hx Cholecystectomy: Yes Hx Breast Surgery: Yes Additional Surgical History: [place] filter - Social History Smoking Status: Former Smoker Substance Use Type: Marijuana - Medications Home Medications: Home Medications Medication Instructions Recorded Confirmed Last Taken Type Dabigatran [Pradaxa] 150 mg PO BID 12/25/17 12/25/17 12/25/17 History Ergocalciferol [Vitamin D2] 1 cap PO QWEEK 12/25/17 12/25/17 Unknown History Folic Acid [Folvite] 1 mg PO QDAY 12/25/17 12/25/17 12/25/17 History ED Physical Exam - General Limitations: No Limitations General appearance: alert, in no apparent distress - Head Head exam: Present: atraumatic, normocephalic - Eye Eye exam: Present: normal appearance - ENT ENT exam: Present: normal exam, normal orophraynx, mucous membranes moist, normal external ear exam - Neck Neck exam: Present: normal inspection, full ROM - Respiratory Respiratory exam: Present: normal lung sounds bilaterally, chest wall tenderness , other (chaperoned by nurse call JODY BROWNING). Absent: respiratory distress - Cardiovascular Cardiovascular Exam: Present: regular rate, normal rhythm, normal heart sounds. Absent: bradycardia, tachycardia, irregular rhythm, systolic murmur, diastolic murmur, rubs, gallop - GI/Abdominal GI/Abdominal exam: Present: soft, normal bowel sounds. Absent: distended, tenderness, guarding, rebound, rigid, pulsatile mass - Extremities Exam Extremities exam: Present: normal inspection, full ROM, normal capillary refill , other (2+ pulses noted in the bilateral upper, lower extremities. Compartments soft. No long bony tenderness. The pelvis is stable.). Absent: pedal edema, joint swelling, calf tenderness - Back Exam Back exam: Present: normal inspection, full ROM. Absent: tenderness, CVA tenderness (R), paraspinal tenderness, vertebral tenderness - Neurological Exam Neurological exam: Present: alert, oriented X3, CN II-XII intact, normal gait, other (Extraocular movements intact. Tongue midline. No facial droop. Facial sensation intact to light touch in the V1, V2, V3 distribution bilaterally. 5 and 5 strength in 4 extremities.. Sensation is intact to light touch in 4 extremities.). Absent: motor sensory deficit - Psychiatric Psychiatric exam: Present: normal affect, normal mood - Skin Skin exam: Present: warm, dry, intact, normal color. Absent: rash ED Course Vital Signs 12/25/17 12/25/17 12/25/17 08:40 10:43 10:44 Temperature 98 F 97.8 F Pulse Rate 70 51 L Respiratory 20 10 L Rate Blood Pressure 168/95 Blood Pressure [Left] O2 Sat by Pulse 98 99 Oximetry 12/25/17 12/25/17 12/25/17 10:46 10:49 11:00 Temperature Pulse Rate 49 L 52 L Respiratory 11 L 19 22 Rate Blood Pressure Blood Pressure [Left] O2 Sat by Pulse 99 99 99 Oximetry 12/25/17 12/25/17 12/25/17 11:15 11:30 11:45 Temperature Pulse Rate 57 L 49 L 62 Respiratory 11 L 9 L 19 Rate Blood Pressure 156/93 176/101 174/99 Blood Pressure [Left] O2 Sat by Pulse 99 99 100 Oximetry 12/25/17 12/25/17 12/25/17 12:00 12:15 12:30 Temperature Pulse Rate 50 L 50 L 52 L Respiratory 20 18 11 L Rate Blood Pressure 159/82 172/89 172/89 Blood Pressure [Left] O2 Sat by Pulse 99 99 100 Oximetry 12/25/17 12/25/17 12:46 13:00 Temperature 97.9 F Pulse Rate 51 L 50 L Respiratory 16 12 Rate Blood Pressure 172/89 148/82 Blood Pressure 148/82 [Left] O2 Sat by Pulse 97 98 Oximetry - EJ/Peripheral Line Neck L Time Out Performed: Yes Indications: nurses unable to establis Skin Cleansed in Sterile Fashion: Yes Size: 20 Dressing Placed: Tegaderm Patient Tolerated Procedure: well CARY score - Cary Score Age > 65: (0) No Aspirin use within the Past 7 Days: (0) No 3 or more CAD Risk Factors: (0) No 2 or more Angina events in past 24 hrs: (0) No Known CAD with more than 50% Stenosis: (0) No Elevated Cardiac Markers: (0) No ST Deviation Greater than 0.5mm: (0) No CARY Score: 0 ED Medical Decision Making - Lab Data Result diagrams: 12/25/17 09:32 12/25/17 09:32 Vital Signs 12/25/17 12/25/17 12/25/17 08:40 10:44 10:49 Temperature 98 F 97.8 F Pulse Rate 70 Respiratory 20 19 Rate Blood Pressure 168/95 O2 Sat by Pulse 98 99 Oximetry Lab Results 12/25/17 12/25/17 Range/Units 09:32 09:32 WBC 9.6 (4.5-11.0) K/mm3 RBC 4.36 (3.65-5.03) M/mm3 Hgb 14.6 H (10.1-14.3) gm/dl Hct 43.5 H (30.3-42.9) % MCV 100 H (79-97) fl MCH 33 H (28-32) pg MCHC 33 (30-34) % RDW 16.8 H (13.2-15.2) % Plt Count 288 (140-440) K/mm3 Lymph % (Auto) 31.5 (13.4-35.0) % [place] % (Auto) 8.3 H (0.0-7.3) % Eos % (Auto) 2.0 (0.0-4.3) % Baso % (Auto) 1.0 (0.0-1.8) % Lymph # 3.0 (1.2-5.4) K/mm3 [place] # 0.8 (0.0-0.8) K/mm3 Eos # 0.2 (0.0-0.4) K/mm3 Baso # 0.1 (0.0-0.1) K/mm3 Seg Neutrophils % 57.2 (40.0-70.0) % Seg Neutrophils # 5.5 (1.8-7.7) K/mm3 Sodium 139 (137-145) mmol/L Potassium 4.5 (3.6-5.0) mmol/L Chloride 104.9 (98-107) mmol/L Carbon Dioxide 21 L (22-30) mmol/L Anion Gap 18 mmol/L BUN 12 (7-17) mg/dL Creatinine 0.6 L (0.7-1.2) mg/dL Estimated GFR > 60 ml/min BUN/Creatinine Ratio 20 % Glucose 81 (65-100) mg/dL Calcium 9.1 (8.4-10.2) mg/dL Troponin T < 0.010 (0.00-0.029) ng/mL - EKG Data -: EKG Interpreted by Me Rate: bradycardia - EKG Data 12/25/17 12:43 Bradycardia, sinus, 59 bpm, low-voltage, poor R-wave progression, normal axis not a STEMI, unchanged from prior - Radiology Data Radiology results: report reviewed, image reviewed X-ray of the chest is negative for acute disease - Medical Decision Making For mental diagnosis, including but not limited to: Costochondritis, acute coronary syndrome, pulmonary embolus, ammonia, GERD, gastritis Assessment and plan: 52-year-old female with reproducible chest wall pain, no recent cardiac risk stratification, d-dimer is pending, patient will be admitted to the hospital for cardiac risk stratification, case presented to the Hospital physician, Dr. Gilmore, who accepted the patient to the medical service. Discussed the odds of major adverse cardiac event with patient, as well as the possibility of outpatient follow-up, however patient reported that she did not feel like she was reliable to follow-up, and indicated she would not be able to follow up with a interior specialist within the next 3 days for outpatient cardiac stratification. Critical care attestation.: If time is entered above; I have spent that time in minutes in the direct care of this critically ill patient, excluding procedure time. ED Disposition Clinical Impression: Chest pain Disposition: OP ADMIT IP TO THIS HOSP Is pt being admited?: Yes Condition: Good
--- NOTE | 2017-12-25 12:23 | History and Physical Report ---
History of Present Illness Chief complaint: My chest is hurting me real bad History of present illness: 52 YO Female with HTN, DVT on therapeutic anticoagulation, Migraine, COPD presents to ED for evaluation. Pt states that she has experienced pain in her chest over the past 1 day with persistent symptoms over the same time frame. Pt states that her pain is 10/10, substernal, sharp, nonradiating, constant, not worsened with exertion or relieved with rest. Pt acknowledges Orthopnea/PND, and decreased exercise tolerance, and bilateral lower extremity swelling. Pt denies fever, chills, palpitations, shortness of breath, unintentional weight loss, night sweats, prolonged travel, unilateral leg swelling, calf pain, or recent ill contacts. Pt seen and evaluated in ED and found to have ACS as well as Diastolic Heart failure. Cardiology consulted in ED and patient admitted to telemetry. Past History Past Medical History: COPD, DVT, hypertension, migraines Past Surgical History: cholecystectomy Social history: single. denies: smoking, alcohol abuse, prescription drug abuse Family history: hypertension Medications and Allergies Allergies Allergy/AdvReac Type Severity Reaction Status Date / Time codeine Allergy Intermediate Vomiting Verified 04/04/17 07:56 naproxen [From Naprosyn] Allergy Intermediate Vomiting Verified 04/04/17 07:56 Home Medications Medication Instructions Recorded Confirmed Last Taken Type Dabigatran [Pradaxa] 150 mg PO BID 12/25/17 12/25/17 12/25/17 History Ergocalciferol [Vitamin D2] 1 cap PO QWEEK 12/25/17 12/25/17 Unknown History Folic Acid [Folvite] 1 mg PO QDAY 12/25/17 12/25/17 12/25/17 History Active Meds: Active Medications Nitroglycerin (Nitrostat) 0.4 mg SL .Q5MIN PRN PRN Reason: Chest Pain Review of Systems Constitutional: no weight loss, no weight gain, no fever, no chills Ears, nose, mouth and throat: no ear pain, no ear discharge, no tinnitis, no decreased hearing, no nose pain, no nasal congestion, no nasal discharge Breasts: no change in shape, no swelling, no mass Cardiovascular: chest pain, orthopnea, shortness of breath, paroxysmal nocturnal dyspnea, leg edema, decreased exercise tolerance, no palpitations, no syncope, no lightheadedness Gastrointestinal: no abdominal pain, no nausea, no vomiting, no diarrhea, no constipation Genitourinary Female: no pelvic pain, no flank pain, no menorrhagia, no dysuria , no urinary frequency, no urgency Rectal: no pain, no incontinence, no bleeding Musculoskeletal: no neck stiffness, no neck pain, no shooting arm pain, no arm numbness/tingling, no low back pain Integumentary: no rash, no pruritis, no redness, no sores, no wounds Neurological: no transient paralysis, no paralysis, no weakness, no parathesias , no numbness, no tingling, no seizures Psychiatric: no anxiety, no memory loss, no change in sleep habits, no sleep disturbances, no insomnia, no hypersomnia, no change in appetite Endocrine: no cold intolerance, no heat intolerance, no polyphagia, no excessive thirst, no polydipsia, no polyuria, no nocturia Hematologic/Lymphatic: no easy bruising, no easy bleeding, no lymphadenopathy, no lymphedema Allergic/Immunologic: no urticaria, no allergic rhinitis, no wheezing, no persistent infections, no anaphylaxis, no angioedema Exam - Constitutional Vitals: Temp Pulse Resp BP Pulse Ox 97.8 F 70 19 168/95 99 12/25/17 10:44 12/25/17 08:40 12/25/17 10:49 12/25/17 08:40 12/25/17 10:49 General appearance: Present: mild distress - EENT Eyes: Present: PERRL ENT: hearing intact, clear oral mucosa - Neck Neck: Present: supple, normal ROM - Respiratory Respiratory effort: normal Respiratory: bilateral: CTA - Cardiovascular Heart Sounds: Present: S1 & S2. Absent: rub, click - Extremities Extremities: pulses symmetrical, No edema Extremity abnormal: edema Peripheral Pulses: within normal limits - Abdominal General gastrointestinal: Present: soft, non-tender, non-distended, normal bowel sounds Female genitourinary: Present: normal - Integumentary Integumentary: Present: clear, warm, dry - Musculoskeletal Musculoskeletal: gait normal, strength equal bilaterally - Psychiatric Psychiatric: appropriate mood/affect, intact judgment & insight - Neurologic Neurologic: CNII-XII intact, moves all extremities Results - Labs CBC & Chem 7: 12/25/17 09:32 12/25/17 09:32 Labs: Abnormal lab results 12/25/17 12/25/17 Range/Units 09:32 09:32 Hgb 14.6 H (10.1-14.3) gm/dl Hct 43.5 H (30.3-42.9) % MCV 100 H (79-97) fl MCH 33 H (28-32) pg RDW 16.8 H (13.2-15.2) % [place] % (Auto) 8.3 H (0.0-7.3) % Carbon Dioxide 21 L (22-30) mmol/L Creatinine 0.6 L (0.7-1.2) mg/dL Assessment and Plan - Patient Problems (1) Diastolic CHF Current Visit: Yes Status: Acute Qualifiers: Heart failure chronicity: acute Qualified Code(s): I50.31 - Acute diastolic (congestive) heart failure Plan to address problem: Admit to telemetry, Echo, cardiology consulted, in ED, D dimer, bnp, chest x ray , supplemental oxygen, pulse oximetry (2) ACS (acute coronary syndrome) Current Visit: Yes Status: Acute Plan to address problem: Admit to telemetry, cardiology consulted, serial cardiac enzymes, ekg, morphine , supplemental oxygen, nitro, aspirin, stress test (3) DVT (deep venous thrombosis) Current Visit: Yes Status: Acute Qualifiers: Chronicity: chronic Plan to address problem: continue therapeutic anticoagulation, supportive care, (4) COPD (chronic obstructive pulmonary disease) Current Visit: Yes Status: Acute Plan to address problem: supplemental oxygen, nebulizer therapy, supportive care, NIPPV as clinically inidicated. (5) DVT prophylaxis Current Visit: Yes Status: Acute Plan to address problem: SCD to BLE while in bed,
[2017-12-25] MEDS ORDERED: SODIUM CHLORIDE FLUSH SYRINGE 10 ML IV PRN ×2 (12:25)
[2017-12-25] MEDS ORDERED: TYLENOL PO PRN (12:25)
[2017-12-25] MEDS ORDERED: ZOFRAN IV PRN (12:25)
[2017-12-25] MEDS ORDERED: BABY ASPIRIN PO STA (12:25)
[2017-12-25 13:06] LABS: INR 1.24 (0.87-1.13)
[2017-12-25] MEDS ORDERED: NACL 0.9% 500 ML 500 ML IV ONE (13:24)
[2017-12-25 13:38] LABS: Chol/HDL Ratio 3.06 %
[2017-12-25] MEDS ORDERED: NACL 0.9% 1000 ML 1,000 ML ONE (13:46)
[2017-12-25] MEDS: MORPHINE IV PRN (16:10)
--- NOTE | 2017-12-25 18:33 | Cat Scan Report ---
FINAL REPORT EXAM: CT ANGIO CHEST HISTORY: cp + dvt TECHNIQUE: Enhanced CT of the chest at 1.25 mm axial intervals following a pulmonary embolism protocol. Coronal and sagittal imaging were also obtained. Coronal oblique MIP projections were obtained. Contrast: 100 ml of Omnipaque 350 given IV. PRIORS: None. FINDINGS: There is no evidence for pulmonary embolism in the main pulmonary artery, right and left pulmonary arteries or their major distributions. However, CT does not exclude distal pulmonary emboli. Linear atelectasis in the lingula is noted. Otherwise, the lung parenchyma are expanded and clear with no evidence for parenchymal nodules, infiltrates, congestion, or pleural effusion. There is no evidence for mediastinal, hilar, or axillary adenopathy. Cardiovascular structures are within normal limits. No evidence for ventricular chamber enlargement is seen. Images through the lung bases include the upper abdomen which show no abnormalities of the visualized abdominal viscera. Bony structures demonstrate no focal abnormalities. IMPRESSION: No evidence for pulmonary embolism. Linear atelectasis in the lingula.
[2017-12-25] MEDS: SODIUM CHLORIDE FLUSH SYRINGE 10 ML IV SCH (23:05)
[2017-12-25] MEDS: PRADAXA PO SCH (23:05)
[2017-12-26] MEDS ORDERED: LEXISCAN IV ONE ×2 (09:26→09:30)
[2017-12-26] MEDS: PRADAXA PO SCH ×2 (11:36→22:15)
[2017-12-26] MEDS: FOLVITE PO SCH (11:36)
[2017-12-26] MEDS: SODIUM CHLORIDE FLUSH SYRINGE 10 ML IV SCH ×2 (11:37→22:15)
--- NOTE | 2017-12-26 15:26 | Progress Note ---
Assessment and Plan Assessment and plan: Chest pain chronic DVT COPD Obesity Chronic anticoagulation Plan d.c planning once stress test is negative continue other mgt plans fall precautions at all times follow up with PCP upon d/c home further pt mgt per hospital course Disposition Plan: discharge home once stress test negative History Interval history: Admitted with Chest pain, which has since resolved, Pt underwent stress testing and report is pending at this time . No new complaints Hospitalist Physical - Constitutional Vitals: Temp Pulse Resp BP Pulse Ox 97.9 F 57 L 20 141/92 99 12/25/17 21:46 12/26/17 10:00 12/25/17 23:00 12/26/17 09:43 12/25/17 22:00 General appearance: Present: no acute distress, mild distress, well-nourished, obese - EENT Eyes: Present: PERRL, EOM intact ENT: hearing intact, clear oral mucosa - Neck Neck: Present: supple, normal ROM - Respiratory Respiratory: bilateral: CTA, negative: rales, rhonchi, wheezing - Cardiovascular Rhythm: regular Heart Sounds: Present: S1 & S2 - Extremities Extremities: pulses intact, Full ROM Extremity abnormal: other (amputated toe right) - Abdominal General gastrointestinal: soft, non-tender, non-distended, normal bowel sounds - Integumentary Integumentary: Present: clear, warm, dry - Psychiatric Psychiatric: appropriate mood/affect, intact judgment & insight, memory intact - Neurologic Neurologic: CNII-XII intact, moves all extremities - Allied Health Allied health notes reviewed: nursing Results - Labs CBC & Chem 7: 12/25/17 09:32 12/25/17 09:32 Labs: Laboratory Last Values WBC 9.6 K/mm3 (4.5-11.0) 12/25/17 09:32 RBC 4.36 M/mm3 (3.65-5.03) 12/25/17 09:32 Hgb 14.6 gm/dl (10.1-14.3) H 12/25/17 09:32 Hct 43.5 % (30.3-42.9) H 12/25/17 09:32 MCV 100 fl (79-97) H 12/25/17 09:32 MCH 33 pg (28-32) H 12/25/17 09:32 MCHC 33 % (30-34) 12/25/17 09:32 RDW 16.8 % (13.2-15.2) H 12/25/17 09:32 Plt Count 288 K/mm3 (140-440) 12/25/17 09:32 Lymph % (Auto) 31.5 % (13.4-35.0) 12/25/17 09:32 [place] % (Auto) 8.3 % (0.0-7.3) H 12/25/17 09:32 Eos % (Auto) 2.0 % (0.0-4.3) 12/25/17 09:32 Baso % (Auto) 1.0 % (0.0-1.8) 12/25/17 09:32 Lymph # 3.0 K/mm3 (1.2-5.4) 12/25/17 09:32 [place] # 0.8 K/mm3 (0.0-0.8) 12/25/17 09:32 Eos # 0.2 K/mm3 (0.0-0.4) 12/25/17 09:32 Baso # 0.1 K/mm3 (0.0-0.1) 12/25/17 09:32 Seg Neutrophils % 57.2 % (40.0-70.0) 12/25/17 09:32 Seg Neutrophils # 5.5 K/mm3 (1.8-7.7) 12/25/17 09:32 PT 16.3 Sec. (12.2-14.9) H 12/25/17 12:18 INR 1.24 (0.87-1.13) H 12/25/17 12:18 D-Dimer 915.13 ng/mlDDU (0-234) H 12/25/17 12:18 Sodium 139 mmol/L (137-145) 12/25/17 09:32 Potassium 4.5 mmol/L (3.6-5.0) 12/25/17 09:32 Chloride 104.9 mmol/L (98-107) 12/25/17 09:32 Carbon Dioxide 21 mmol/L (22-30) L 12/25/17 09:32 Anion Gap 18 mmol/L 12/25/17 09:32 BUN 12 mg/dL (7-17) 12/25/17 09:32 Creatinine 0.6 mg/dL (0.7-1.2) L 12/25/17 09:32 Estimated GFR > 60 ml/min 12/25/17 09:32 BUN/Creatinine Ratio 20 % 12/25/17 09:32 Glucose 81 mg/dL (65-100) 12/25/17 09:32 Calcium 9.1 mg/dL (8.4-10.2) 12/25/17 09:32 Troponin T < 0.010 ng/mL (0.00-0.029) 12/25/17 18:22 Triglycerides 133 mg/dL (2-149) 12/25/17 12:18 Cholesterol 147 mg/dL (50-199) 12/25/17 12:18 LDL Cholesterol Direct 85 mg/dL (50-130) 12/25/17 12:18 HDL Cholesterol 48 mg/dL (40-59) 12/25/17 12:18 Cholesterol/HDL Ratio 3.06 % 12/25/17 12:18 - Imaging and Cardiology EKG: report reviewed Chest x-ray: report reviewed CT scan - chest: report reviewed
[2017-12-26] MEDS: MORPHINE IV PRN (17:28)
[2017-12-27] MEDS: MORPHINE IV PRN (05:44)
[2017-12-27 09:40] VITALS: BP 141/90
--- NOTE | 2017-12-27 10:13 | Progress Note ---
Assessment and Plan - Patient Problems (1) Chest pain Current Visit: Yes Status: Acute Plan to address problem: Chest pain, musculoskeletal normal MPI this admission chest CTA: no evidence of PE No further cardiac workup indicated. Will sign off. Subjective Date of service: 12/27/17 Interval history: This is a 52 year old woman admitted with atypical chest pain. Today she reports continued chest pain with inspirations. Patient also reports pain is reproducible with palpation. Objective Vital Signs Temp Pulse Resp BP Pulse Ox 12/27/17 08:23 98.1 F 59 L 16 141/90 97 12/27/17 03:24 97.9 F 53 L 16 143/83 96 12/27/17 00:34 97.9 F 61 16 156/88 96 12/26/17 23:46 47 L 12/26/17 19:24 98.0 F 51 L 16 146/89 97 12/26/17 17:28 18 12/26/17 17:17 98.5 F 59 L 18 153/99 99 12/26/17 12:02 97.6 F 52 L 18 161/97 97 - Physical Examination General: No Apparent Distress HEENT: Positive: PERRL Cardiac: Positive: Reg Rate and Rhythm Lungs: Positive: Decreased Breath Sounds Neuro: Positive: Grossly Intact - Imaging and Cardiology EKG: report reviewed
[2017-12-27] MEDS: FOLVITE PO SCH (10:29)
[2017-12-27] MEDS: PRADAXA PO SCH (10:29)
[2017-12-27] MEDS: SODIUM CHLORIDE FLUSH SYRINGE 10 ML IV SCH (10:30)
--- NOTE | 2017-12-27 14:01 | Discharge Summary ---
Providers - Providers Date of Admission: 12/25/17 12:25 Date of discharge: 12/27/17 Attending physician: DARRIN PALMER 12/25/17 Consult to Cardiac Rehabilitation [CONS] Routine Reason For Exam: Phase I 12/25/17 12:25 Consult to Cardiology [CONS] Routine Consulting Provider: KATARZYNA DAY Reason For Exam: acs/chf Primary care physician: [employer] Hospitalization Reason for admission: Chest pain, uncontrolled hypertension Condition: Good Pertinent studies: Nuclear stress test Hospital course: Final discharge diagnoses -Atypical chest pain, exact cause unknown -Uncontrolled hypertension, improved -History of DVT on anticoagulation -History of COPD -History of migraines Patient was admitted and placed on chest pain pathway. Serial troponin levels came back negative. Thereafter, she underwent nuclear stress testing which was also reported as negative. In addition, she was reviewed by the remote advisor who cleared the patient for discharge. On discharge, she was chest pain-free. Also, she was started on antihypertensive on discharge. Patient is to follow up on the echocardiogram report during clinic visit. Disposition: DC- TO HOME OR SELFCARE Time spent for discharge: 32 minutes Core Measure Documentation - Palliative Care Palliative Care/ Comfort Measures: Not Applicable - Core Measures Any of the following diagnoses?: none Exam - Constitutional Vitals: Temp Pulse Resp BP Pulse Ox 98.1 F 52 L 16 141/90 97 12/27/17 08:23 12/27/17 10:00 12/27/17 08:23 12/27/17 08:23 12/27/17 08:23 General appearance: Present: no acute distress - EENT Eyes: Present: PERRL, EOM intact ENT: clear oral mucosa - Neck Neck: Present: supple - Respiratory Respiratory effort: normal Respiratory: bilateral: CTA - Cardiovascular Rhythm: regular Heart Sounds: Present: S1 & S2 - Extremities Extremities: No edema - Abdominal General gastrointestinal: Present: soft, non-tender, normal bowel sounds - Neurologic Neurologic: CNII-XII intact Plan Follow up with: PRIMARY CARE, [Primary Care Provider] - 3-5 Days Prescriptions: amLODIPine [Norvasc] 5 mg PO DAILY #30 tab Nitroglycerin [Nitrostat] 0.4 mg SL .Q5MIN PRN #1 bottle PRN Reason: Chest Pain Pantoprazole [Protonix] 40 mg PO QDAY #30 tablet
[2018-01-01] MEDS ORDERED: VITAMIN D2 PO SCH (10:00)
== END 2017-12-27 15:03 | disposition home or self-care (01) | DRG 313 ==
LOC: ED 08:25 → 4A 12:25
PROVIDERS: ADMIT Internal Medicine; ATTEND Internal Medicine
PROC: 05HQ33Z Insertion of Infusion Device into Left External Jugular Vein, Percutaneous Approach (ICD-10-PCS; principal; 2017-12-25)
DX: R07.89 Other chest pain (principal); I50.30 Unspecified diastolic (congestive) heart failure; I82.599 Chronic embolism and thrombosis of other specified deep vein of unspecified lower extremity; I11.0 Hypertensive heart disease with heart failure; J44.9 Chronic obstructive pulmonary disease, unspecified; F12.90 Cannabis use, unspecified, uncomplicated; E66.9 Obesity, unspecified; G43.909 Migraine, unspecified, not intractable, without status migrainosus; Z79.01 Long term (current) use of anticoagulants; Z90.49 Acquired absence of other specified parts of digestive tract; Z82.49 Family history of ischemic heart disease and other diseases of the circulatory system; Z88.5 Allergy status to narcotic agent; Z88.8 Allergy status to other drugs, medicaments and biological substances; Z87.891 Personal history of nicotine dependence
CPT/HCPCS: 36415; 71046; 71275; 78452; 80048; 80061; 84484; 85025; 85379; 85610; 93005; 93010; 93017; 93306; 96365; A9502; J2270; J2405; J2785; J3010; J7030; Q9967